=== PATIENT | male | born 1985 | race Hispanic/Latino ===

== ENCOUNTER → 2021-10-31 13:27 | Outpatient (CLI) | payer OTHER, SELFPAY ==
--- NOTE | 2021-10-31 13:32 | DI.RAD.S_ITS ---
PROCEDURE: XR HAND LT MIN 3V INDICATIONS: finger laceration TECHNIQUE: 3 views of the hand(s) acquired. COMPARISON: None. FINDINGS: Bones: No fractures or dislocations. Carpal bones are normally aligned. No suspicious bony lesions. Soft tissues: Mild soft tissue swelling can be seen involving the 4th and 5th fingers. Gauze bandaging can be seen involving these fingers. No radiopaque foreign bodies are seen. IMPRESSION: A soft tissue swelling involving the 4th and 5th fingers, without radiopaque foreign body or bony involvement identified. Dictated by: Samy Barker M.D. on 10/31/2021 at 13:14 Approved by: Samy Barker M.D. on 10/31/2021 at 13:15
== END ==
PROVIDERS: Referring Provider Nurse Practitioner Critical Care Medicine; Visit Provider Nurse Practitioner Critical Care Medicine
DX: S61.215A Laceration without foreign body of left ring finger without damage to nail, initial encounter (principal); S61.217A Laceration without foreign body of left little finger without damage to nail, initial encounter; M79.89 Other specified soft tissue disorders; W31.1XXA Contact with metalworking machines, initial encounter
CPT/HCPCS: 73130